=== PATIENT | male | born 1995 | race African-American/Black ===

== ENCOUNTER 2017-07-28 11:44 | Inpatient (IN) | payer OTHER, MEDICAID ==
[~2017-07-28] VITALS: Ht 170.2 cm; Wt 56.2 kg
[2017-07-28] MEDS ORDERED: PSYCH MED PO (12:20)
[2017-07-28] MEDS ORDERED: ARIP2 PO (12:21)
[2017-07-28] MEDS ORDERED: SERT50TA12 PO (12:21)
[2017-07-28] MEDS ORDERED: HALOPERIDOL 5 MG TABLET PO PRN (16:45)
[2017-07-28] MEDS ORDERED: INFLUENZA VIRUS VACCINE QVS 2017-18 (3YR+)/PF 60 MCG/0.5 ML SYRINGE IM ONE (19:15)
[2017-07-28 19:54] VITALS: BP 135/80
[2017-07-28] MEDS: ZOLPIDEM TARTRATE 10 MG TABLET PO PRN (20:45)
[2017-07-29 06:21] VITALS: BP 128/83
[2017-07-29 08:06] VITALS: BP 108/60
[2017-07-29] MEDS: NICOTINE 14 MG/24 HOUR PATCH TD SCH (09:07)
[2017-07-29] MEDS: RisperiDONE 1 MG TABLET PO SCH ×3 (10:30→17:00)
[2017-07-29 16:10] VITALS: BP 108/60
[2017-07-29] MEDS: ZOLPIDEM TARTRATE 10 MG TABLET PO PRN (20:24)
[2017-07-30 05:29] VITALS: BP 127/74
[2017-07-30 08:29] VITALS: BP 90/53
[2017-07-30] MEDS: RisperiDONE 1 MG TABLET PO SCH ×2 (08:47→17:00)
[2017-07-30] MEDS: NICOTINE 14 MG/24 HOUR PATCH TD SCH (08:47)
[2017-07-30 16:00] VITALS: BP 113/66
[2017-07-30] MEDS: ZOLPIDEM TARTRATE 10 MG TABLET PO PRN (20:27)
[2017-07-30] MEDS: LORazepam 2 MG TABLET PO PRN (20:27)
[2017-07-31 06:35] VITALS: BP 130/62
[2017-07-31 08:12] VITALS: BP 138/84
[2017-07-31 08:44] LABS: BASOPHILS % (AUTO) 0.7 % (0.0-2.0); EOSINOPHILS % (AUTO) 5.4 % (1.0-6.0); HEMATOCRIT 45.1 % (41-53); HEMOGLOBIN 15.3 g/dL (13.5-17.5); LYMPHOCYTES # (AUTO) 3.1 K/uL (1.0-4.8); LYMPHOCYTES % (AUTO) 40.1 % (22.0-44.0); MEAN CORPUSCULAR HEMOGLOBIN 30.9 pg (26.0-34.0); MEAN CORPUSCULAR VOLUME 91 fL (80-100); MONOCYTES # (AUTO) 0.5 K/uL (0.1-1.0); MONOCYTES % (AUTO) 5.9 % (2.0-9.0); NEUTROPHILS # (AUTO) 3.7 K/uL (1.8-7.7); NEUTROPHILS % (AUTO) 47.9 % (40.0-70.0); PLATELET COUNT (AUTO) 233 K/uL (150-450); RED BLOOD CELL COUNT(AUTO) 4.96 MIL/uL (4.50-5.90); RED CELL DISTRIBUTION WIDTH 13.7 % (11.5-14.5); WHITE BLOOD COUNT (AUTO) 7.7 K/uL (4.5-11.0)
[2017-07-31 09:05] LABS: ALANINE AMINOTRANSFERASE 31 U/L (12-78); ALBUMIN 3.8 g/dL (3.4-5.0); ANION GAP 9 mmol/L (8-16); ASPARTATE AMINOTRANSFERASE 27 U/L (15-37); BILIRUBIN,TOTAL 0.5 mg/dL (0.1-1.0); CARBON DIOXIDE 28 mmol/L (22-29); CHLORIDE 102 mmol/L (98-107); CHOL/HDL RATIO 4.4 (4.2-7.3); CREATININE 1.17 mg/dL (0.60-1.30); GLOMERULAR FILTR. RATE CALC > 60 mL/min (>60); POTASSIUM 3.6 mmol/L (3.5-5.1); SODIUM SERUM 139 mmol/L (136-145); THYROID STIMULATING HORMONE 2.91 uIU/mL (0.36-3.74); TOTAL PROTEIN, SERUM 7.5 g/dL (6.4-8.2); UREA NITROGEN, BLOOD 12 mg/dL (7-18)
[2017-07-31] MEDS: NICOTINE 14 MG/24 HOUR PATCH TD SCH (09:06)
[2017-07-31] MEDS: LORazepam 2 MG TABLET PO PRN (09:06)
[2017-07-31] MEDS: RisperiDONE 2 MG TABLET PO SCH ×2 (09:06→17:00)
[2017-07-31 16:06] VITALS: BP 132/78
[2017-08-01 02:21] VITALS: BP 117/65
[2017-08-01 08:34] VITALS: BP 110/65
[2017-08-01] MEDS: RisperiDONE 2 MG TABLET PO SCH (08:51)
[2017-08-01] MEDS: NICOTINE 14 MG/24 HOUR PATCH TD SCH (08:52)
[2017-08-01 16:00] VITALS: BP 129/86
[2017-08-01] MEDS: OLANZapine 5 MG RAPDIS TABLET PO SCH (16:02)
[2017-08-02 08:03] VITALS: BP 110/66
[2017-08-02] MEDS: NICOTINE 14 MG/24 HOUR PATCH TD SCH (09:08)
[2017-08-02] MEDS: OLANZapine 5 MG RAPDIS TABLET PO SCH ×2 (09:16→16:22)
[2017-08-02 16:07] VITALS: BP 102/60
[2017-08-02] MEDS: LORazepam 2 MG TABLET PO PRN (16:28)
[2017-08-03 02:45] VITALS: BP 117/74
[2017-08-03 08:04] VITALS: BP 116/67
[2017-08-03] MEDS: OLANZapine 5 MG RAPDIS TABLET PO SCH ×2 (09:30→17:44)
[2017-08-03] MEDS: NICOTINE 14 MG/24 HOUR PATCH TD SCH (09:30)
[2017-08-03 16:12] VITALS: BP 104/62
[2017-08-03] MEDS: LORazepam 2 MG TABLET PO PRN (17:44)
[2017-08-04 06:08] VITALS: BP 109/62
[2017-08-04 09:02] VITALS: BP 103/60
[2017-08-04] MEDS: OLANZapine 5 MG RAPDIS TABLET PO SCH ×2 (09:29→16:20)
[2017-08-04] MEDS: NICOTINE 14 MG/24 HOUR PATCH TD SCH (09:29)
[2017-08-04 16:00] VITALS: BP 126/77
[2017-08-04] MEDS: LORazepam 2 MG TABLET PO PRN (16:20)
[2017-08-05 04:35] VITALS: BP 113/84
[2017-08-05] MEDS: OLANZapine 5 MG RAPDIS TABLET PO SCH (08:42)
[2017-08-05] MEDS: NICOTINE 14 MG/24 HOUR PATCH TD SCH (08:42)
[2017-08-05] MEDS: LORazepam 2 MG TABLET PO PRN (08:42)
[2017-08-05 09:03] VITALS: BP 114/64
[2017-08-05] MEDS ORDERED: OLAN5TAB40 PO (10:21)
== END 2017-08-05 13:25 | disposition home or self-care (01) | DRG 885 ==
LOC: EMS 11:45 → EDSEX 11:45 → B2S 16:53 → B3A 19:13
PROVIDERS: ADMIT Psychiatry & Neurology Child & Adolescent Psychiatry; ATTEND Psychiatry & Neurology Child & Adolescent Psychiatry
PROC: 0HQ1XZZ Repair Face Skin, External Approach (ICD-10-PCS; principal; 2017-07-28)
DX: F20.9 Schizophrenia, unspecified (principal); F29 Unspecified psychosis not due to a substance or known physiological condition; F17.210 Nicotine dependence, cigarettes, uncomplicated; S01.112A Laceration without foreign body of left eyelid and periocular area, initial encounter; Y04.0XXA Assault by unarmed brawl or fight, initial encounter; Y92.89 Other specified places as the place of occurrence of the external cause; Y93.89 Activity, other specified
CPT/HCPCS: 12011; 70450; 84443; 99285

== ENCOUNTER 2018-01-08 22:08 | Emergency (ER) | payer OTHER, MEDICAID ==
[~2018-01-08] VITALS: Ht 177.8 cm; Wt 61.4 kg
[~2018-01-08 22:08] MED LIST: OLAN5TAB40 PO
[2018-01-09 00:17] VITALS: BP 118/63
== END 2018-01-09 00:20 | disposition home or self-care (01) ==
LOC: EMS 22:09
DX: F29 Unspecified psychosis not due to a substance or known physiological condition (principal); F20.9 Schizophrenia, unspecified; F12.10 Cannabis abuse, uncomplicated; F17.210 Nicotine dependence, cigarettes, uncomplicated; Z79.899 Other long term (current) drug therapy
CPT/HCPCS: 99285

== ENCOUNTER 2019-04-11 00:02 | Emergency (ER) | payer OTHER, MEDICAID ==
[~2019-04-11] VITALS: Ht 170.2 cm; Wt 65.9 kg
[2019-04-11 01:53] LABS: EOSINOPHILS % (AUTO) 7.3 % (1.0-6.0); HEMATOCRIT 42.7 % (41-53); HEMOGLOBIN 14.1 g/dL (13.5-17.5); LYMPHOCYTES % (AUTO) 50.3 % (22.0-44.0); MEAN CORPUSCULAR HEMOGLOBIN 30.4 pg (26.0-34.0); MEAN CORPUSCULAR VOLUME 92 fL (80-100); MONOCYTES # (AUTO) 0.5 K/uL (0.1-1.0); MONOCYTES % (AUTO) 9.1 % (2.0-9.0); NEUTROPHILS # (AUTO) 1.9 K/uL (1.8-7.7); NEUTROPHILS % (AUTO) 32.3 % (40.0-70.0); PLATELET COUNT (AUTO) 177 K/uL (150-450); RED BLOOD CELL COUNT(AUTO) 4.64 MIL/uL (4.50-5.90); RED CELL DISTRIBUTION WIDTH 13.4 % (11.5-14.5)
[2019-04-11 02:01] VITALS: BP 136/75
[2019-04-11 02:02] LABS: ANION GAP 6 mmol/L (8-16); CALCIUM, TOTAL 9.3 mg/dL (8.8-10.5); CARBON DIOXIDE 26 mmol/L (22-29); CHLORIDE 103 mmol/L (98-107); CREATININE 1.06 mg/dL (0.60-1.30); GLOMERULAR FILTR. RATE CALC > 60 mL/min (>60); GLUCOSE,RANDOM 69 mg/dL (70-110); POTASSIUM 3.6 mmol/L (3.5-5.1); SODIUM SERUM 135 mmol/L (136-145); UREA NITROGEN, BLOOD 11 mg/dL (7-18)
[2019-04-11 02:09] LABS: ALANINE AMINOTRANSFERASE 23 U/L (12-78); ALBUMIN 4.1 g/dL (3.4-5.0); ALKALINE PHOSPHATASE 56 U/L (46-116); ASPARTATE AMINOTRANSFERASE 39 U/L (15-37); BILIRUBIN,TOTAL 0.6 mg/dL (0.1-1.0); TOTAL PROTEIN, SERUM 6.9 g/dL (6.4-8.2)
== END 2019-04-11 04:00 | disposition home or self-care (01) ==
LOC: EMS 00:07
DX: F20.9 Schizophrenia, unspecified (principal); F32.9 Major depressive disorder, single episode, unspecified; F17.210 Nicotine dependence, cigarettes, uncomplicated; F12.90 Cannabis use, unspecified, uncomplicated
CPT/HCPCS: 36415; 80053; 85025; 99285; G0480

== ENCOUNTER 2024-07-11 03:34 | Inpatient (IN) | payer MEDICAID, OTHER ==
[~2024-07-11] VITALS: Ht 172.7 cm; Wt 90.9 kg
[~2024-07-11 03:34] MED LIST changes: -OLAN5TAB40 PO; +OLAN5TAB94 PO
[2024-07-11 03:40] VITALS: TEMP 97.9
[2024-07-11] MEDS: SODIUM CHLORIDE 0.9% 1,000 ML IV ONE (03:53)
[2024-07-11] MEDS ORDERED: PALI6TAB15 PO ×2 (04:00→09:14)
[2024-07-11] MEDS ORDERED: OLAN20TA82 PO (04:00)
[2024-07-11] MEDS ORDERED: CLON0.1T PO (04:00)
[2024-07-11] MEDS ORDERED: DIVA-153 PO ×2 (04:00→09:14)
[2024-07-11] MEDS ORDERED: FAMO20 PO (04:00)
[2024-07-11] MEDS ORDERED: MAGN500T4 PO (04:00)
[2024-07-11] MEDS ORDERED: TRAZ-257 PO (04:00)
[2024-07-11] MEDS ORDERED: TOPI-97 PO (04:00)
[2024-07-11] MEDS ORDERED: QUET300T19 PO (04:00)
[2024-07-11] MEDS ORDERED: METF-81 PO (04:00)
[2024-07-11] MEDS ORDERED: GABA-1404 PO (04:00)
[2024-07-11] MEDS ORDERED: CHOL500013 PO (04:00)
[2024-07-11 04:06] LABS: ANION GAP 7 mmol/L (8-16); CALCIUM, TOTAL 8.7 mg/dL (8.8-10.5); CARBON DIOXIDE 28 mmol/L (22-29); CHLORIDE 105 mmol/L (98-107); CREATININE 1.38 mg/dL (0.60-1.30); GLOMERULAR FILTR. RATE CALC > 60 mL/min (>60); GLUCOSE,RANDOM 142 mg/dL (70-110); POTASSIUM 3.4 mmol/L (3.5-5.1); SODIUM SERUM 140 mmol/L (136-145); UREA NITROGEN, BLOOD 8 mg/dL (7-18)
[2024-07-11 04:07] LABS: EOSINOPHILS % (AUTO) 5.7 % (1.0-6.0); HEMATOCRIT 40.9 % (41-53); HEMOGLOBIN 13.9 g/dL (13.5-17.5); LYMPHOCYTES # (AUTO) 7.6 K/uL (1.0-4.8); LYMPHOCYTES % (AUTO) 58.2 % (22.0-44.0); MEAN CORPUSCULAR HEMOGLOBIN 31.6 pg (26.0-34.0); MEAN CORPUSCULAR VOLUME 93 fL (80-100); MONOCYTES # (AUTO) 1.5 K/uL (0.1-1.0); MONOCYTES % (AUTO) 11.6 % (2.0-9.0); NEUTROPHILS # (AUTO) 3.1 K/uL (1.8-7.7); NEUTROPHILS % (AUTO) 23.5 % (40.0-70.0); PLATELET COUNT (AUTO) 297 K/uL (150-450); RED CELL DISTRIBUTION WIDTH 13.8 % (11.5-14.5); WHITE BLOOD COUNT (AUTO) 13.1 K/uL (4.5-11.0)
[2024-07-11 04:12] LABS: ALANINE AMINOTRANSFERASE 30 U/L (12-78); ALBUMIN 3.3 g/dL (3.4-5.0); ALKALINE PHOSPHATASE 94 U/L (46-116); ASPARTATE AMINOTRANSFERASE 20 U/L (15-37); BILIRUBIN,TOTAL 0.3 mg/dL (0.1-1.0)
[2024-07-11 04:14] LABS: TROPONIN I-HIGH SENSITIVITY 6 ng/L (<76)
[2024-07-11 04:27] LABS: B-TYPE NATRIURETIC PEPTIDE 6 pg/mL (0-100)
[2024-07-11] MEDS: DILTIAZEM HCL 125 MG in DEXTROSE 5%-WATER 100 ML IV PRN (04:27)
[2024-07-11] MEDS: DILTIAZEM HCL 5 MG/ML 5 ML VIAL IVP ONE (04:27)
[2024-07-11 05:19] LABS: APPEARANCE,URINE CLEAR (CLEAR); BILIRUBIN,URINE NEGATIVE (NEGATIVE); COLOR,URINE LIGHT YELLOW (YELLOW); GLUCOSE, URINE (UA) NEGATIVE (NEGATIVE); KETONES,URINE NEGATIVE (NEGATIVE); LEUKOCYTE ESTERASE ,URINE NEGATIVE (NEGATIVE); NITRATE,URINE NEGATIVE (NEGATIVE); OCCULT BLOOD,URINE NEGATIVE (NEGATIVE); PROTEIN,URINE TRACE mg/dL (NEGATIVE); SPECIFIC GRAVITIY, URINE 1.016 (1.003-1.030); UROBILINOGEN,URINE <=1.0 mg/dL (<=1.0)
[2024-07-11 05:26] LABS: ALCOHOL, URINE DRUG SCREEN NEGATIVE (NEGATIVE); AMPHET/METH SCREEN,URINE NEGATIVE (NEGATIVE); BARBITURATE SCREEN, URINE NEGATIVE (NEGATIVE); BENZODIAZEPINES SCREEN,URINE POSITIVE (NEGATIVE); CANNABINOID SCREEN,URINE POSITIVE (NEGATIVE); COCAINE SCREEN,URINE NEGATIVE (NEGATIVE); METHADONE SCREEN, URINE NEGATIVE (NEGATIVE); OPIATE SCREEN,URINE POSITIVE (NEGATIVE); PHENCYCLIDINE SCREEN,URINE NEGATIVE (NEGATIVE)
[2024-07-11] MEDS ORDERED: ONDANSETRON HCL 4 MG/2 ML VIAL IVP PRN (08:30)
[2024-07-11] MEDS ORDERED: ACETAMINOPHEN 325 MG TABLET PO PRN (08:30)
[2024-07-11 09:14] LABS: TROPONIN I-HIGH SENSITIVITY 529 ng/L (<76)
[2024-07-11] MEDS ORDERED: OLAN10TA74 PO (09:14)
[2024-07-11] MEDS ORDERED: METF-1185 PO (09:14)
[2024-07-11] MEDS ORDERED: TOPI25 PO (09:14)
[2024-07-11] MEDS ORDERED: magnesium PO (09:14)
[2024-07-11] MEDS ORDERED: QUET300T2 PO (09:14)
[2024-07-11] MEDS ORDERED: GABA-1181 PO (09:14)
[2024-07-11 09:15] LABS: CREATININE,URINE RANDOM 193.1 mg/dL (30.0-125.0)
[2024-07-11] MEDS: POTASSIUM CHLORIDE 20 MEQ ER TABLET PO ONE (09:20)
[2024-07-11] MEDS: DOCUSATE SODIUM 100 MG CAPSULE PO SCH (09:20)
[2024-07-11] MEDS: ASPIRIN 81 MG DR TABLET PO SCH (09:23)
[2024-07-11] MEDS ORDERED: POTASSIUM CHL 10 MEQ/WATER 50 ML IV PRN (09:30)
[2024-07-11] MEDS ORDERED: POTASSIUM CHLORIDE 20 MEQ ER TABLET PO PRN (09:30)
[2024-07-11 11:30] VITALS: BP 128/75; PULSE 72; RESP 16; O2SAT 98
[2024-07-11] MEDS ORDERED: HEPARIN SODIUM,PORCINE 5,000 UNITS/ML VIAL SQ SCH (16:00)
== END 2024-07-11 12:12 | disposition left against medical advice (07) | DRG 201 ==
LOC: EMS 03:34 → EDH 08:35
PROVIDERS: ADMIT Internal Medicine; ATTEND Internal Medicine
DX: I48.91 Unspecified atrial fibrillation (principal); N17.0 Acute kidney failure with tubular necrosis; I21.4 Non-ST elevation (NSTEMI) myocardial infarction; E11.9 Type 2 diabetes mellitus without complications; E66.9 Obesity, unspecified; E87.6 Hypokalemia; F20.9 Schizophrenia, unspecified; Z53.29 Procedure and treatment not carried out because of patient's decision for other reasons; Z91.199 Patient's noncompliance with other medical treatment and regimen due to unspecified reason; Z68.30 Body mass index [BMI] 30.0-30.9, adult; I24.9 Acute ischemic heart disease, unspecified
CPT/HCPCS: 71045; 80048; 80076; 80307; 81003; 82570; 83036; 83880; 84300; 84443; 84484; 85025; 93005; 93306; 99291; G0378; J3490; J7060; 36415-L1; 36415-TC